=== PATIENT | female | born 1955 | race Caucasian/White ===

== ENCOUNTER 2020-05-02 10:11 | Inpatient (IN) | payer MEDICARE, MEDICAID ==
[~2020-05-02] VITALS: Ht 170.2 cm; Wt 93.4 kg
--- NOTE | 2020-05-02 10:15 | NUR ---
BIB EMS FROM HOME, PT W/ HX OF COPD NOT ON OXYGEN AT HOME. 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 PT NOW PRESENTS LETHARGIC, ANSWERS QUESTIONS WITH STIMULATION AND ENCOURAGEMENT WITH ON WORD ANSWERS. PT VERY LETHARGIC PUPILS PIN [place]INT. TOOK AMBIEN LAST NIGHT BUT DENIES ANY MEDS THIS AM. PER EMS PT WITH INCREASING SOB X 3 DAYS. PT IS A SMOKER. PT ON ALL MONITORS AND EKG COMPLETED. DR OLIVO AT BEDSIDE ASSESSMENT DISSCUSED AND ORDERS REC'D. PT WITH WEAK, MOIST NON-PROD COUGH, AUDIBLE WHEEZES AND PROLONGED EXPIRATORY PHASE. 02 NC TO 4L SP02 = 98% RR 11-16
[2020-05-02] MEDS ORDERED: SODIUM CHLORIDE FLUSH 10ML SYR IVF ONE (11:00)
[2020-05-02] MEDS ORDERED: methylPREDNISolone SOD SUCC 125 MG/2 ML IVPush ONE (11:00)
[2020-05-02] MEDS ORDERED: ALBUTEROL/IPRATROPIUM 2.5MG/0.5MG, 3 ML NPPB ONE (11:00)
[2020-05-02] MEDS ORDERED: MAGNESIUM SULFATE PMX 2GM/50ML 50 ML IVPB ONE (11:00)
[2020-05-02] MEDS ORDERED: MAGNESIUM SULFATE PMX 2GM/50ML 50 ML ONE (11:01)
[2020-05-02] MEDS ORDERED: methylPREDNISolone SOD SUCC 125 MG/2 ML ONE (11:01)
[2020-05-02] MEDS ORDERED: ALBUTEROL/IPRATROPIUM 2.5MG/0.5MG, 3 ML ONE (11:01)
[2020-05-02 11:12] LABS: BASOPHILS # (AUTO) 0.02 x10^3/uL (0-0.1); BASOPHILS % (AUTO) 0 % (0-1); EOSINOPHILS # (AUTO) 0.12 x10^3/uL (0-0.4); EOSINOPHILS % (AUTO) 2 % (1-7); LYMPHOCYTES # (AUTO) 1.91 x10^3/uL (1-3.4); LYMPHOCYTES % (AUTO) 25 % (22-44); MD NO; MEAN CORPUSCULAR HEMOGLOBIN 29.1 pg (27.0-34.8); MEAN CORPUSCULAR HGB CONC 33.3 g/dL (32.4-35.8); MEAN CORPUSCULAR VOLUME 87.4 fL (80-100); MEAN PLATELET VOLUME 8.6 fL (7.4-10.4); MONOCYTES # (AUTO) 0.34 x10^3/uL (0.2-0.8); MONOCYTES % (AUTO) 4 % (2-9); NEUTROPHILS # (AUTO) 5.29 x10^3/uL (1.8-6.8); NEUTROPHILS % (AUTO) 69 % (42-75); PLATELET COUNT 220 x10^3/uL (130-400); RED BLOOD COUNT 5.04 x10^6/uL (3.82-5.3); RED CELL DISTRIBUTION WIDTH 16.1 % (9.6-15.2)
[2020-05-02 11:22] LABS: ALBUMIN 3.6 g/dL (3.4-5.0); ANION GAP 4 mmol/L (5-15); CALCIUM 9.2 mg/dL (8.5-10.1); CHLORIDE 109 mmol/L (98-107); CREATININE 0.82 mg/dL (0.55-1.02)
--- NOTE | 2020-05-02 11:30 | NUR ---
SISTER, BOONE JOEL [phone]. PT GAVE VERBAL CONSENT THAT INFORMATION COULD BE SHARED. INFORMED BOONE OF POC AND EXPLAINED NO VISITORS AT THIS TIME 2/2 RESP ISSUES.
--- NOTE | 2020-05-02 11:30 | NUR ---
GLORIA GUEVARA TREATMENT ORDERED. DISCUSSED WITH SHORTS SIFTER., PT MOVED TO NEGATIVE PRESSURE ROOM AND RPT TO SHALINI CAMPOS. MEDS GIVEN NOTED AND INFUSING W/O DIFFICULTY. Addendum: 05/02/20 at 1140 by RACH MIKHAIL RPT TO SHALINI MARTINEZ
--- NOTE | 2020-05-02 12:17 | NUR ---
PT SOMULENT AROUSES TO VOICE, DUONEB STARTED VIA MASK
[2020-05-02] MEDS ORDERED: ALBUTEROL SULFATE 2.5 MG/3 ML NPPB ONE (12:30)
--- NOTE | 2020-05-02 12:38 | NUR ---
end tidal checked 29-34, md aware
[2020-05-02] MEDS ORDERED: NALOXONE 0.4 MG/ML, 1ML ONE (12:47)
[2020-05-02] MEDS ORDERED: ALBUTEROL SULFATE 2.5 MG/3 ML ONE (12:49)
--- NOTE | 2020-05-02 12:58 | NUR ---
per adminsiter .4 mg of narcan to determine if pt becomes more aroused, dr. beckman at bedside when medication was administered, no change in patients mentation
[2020-05-02] MEDS ORDERED: NALOXONE 0.4 MG/ML, 1ML IVPush ONE (13:00)
[2020-05-02] MEDS ORDERED: DENO60DI SQ (13:55)
[2020-05-02] MEDS ORDERED: EZET10TA70 PO (13:55)
[2020-05-02] MEDS ORDERED: MELO15TA24 PO (13:56)
[2020-05-02] MEDS ORDERED: LEVO50TA PO (13:56)
[2020-05-02] MEDS ORDERED: MOME17SP NS (13:57)
[2020-05-02] MEDS ORDERED: OMEP-110 PO (13:57)
[2020-05-02] MEDS ORDERED: TRAZ50TA66 PO (13:58)
[2020-05-02] MEDS ORDERED: RISP4TAB34 PO (13:58)
[2020-05-02] MEDS ORDERED: GABA800T5 PO (13:59)
[2020-05-02] MEDS ORDERED: ZOLP-413 PO (13:59)
[2020-05-02] MEDS ORDERED: APIX5TAB PO (13:59)
[2020-05-02] MEDS ORDERED: CLON2TAB PO (14:00)
[2020-05-02 14:24] LABS: INTERNATIONAL NORMALIZED RATIO 0.98 (0.93-1.1); PROTHROMBIN TIME 10.1 Seconds (9.6-11.5)
[2020-05-02 14:34] LABS: ALANINE AMINOTRANSFERASE 19 U/L (12-78); ALBUMIN 3.7 g/dL (3.4-5.0)
[2020-05-02 14:38] LABS: ALKALINE PHOSPHATASE 104 U/L (45-117); BILIRUBIN, DIRECT 0.1 mg/dL (0.1-0.2); BILIRUBIN,INDIRECT 0.3 mg/dL (0.0-2.0); BILIRUBIN,TOTAL 0.4 mg/dL (0.2-1.0); TOTAL PROTEIN 6.8 g/dL (6.4-8.2); TROPONIN I < 0.015 ng/mL (0.000-0.045)
--- NOTE | 2020-05-02 14:51 | NUR ---
REPORT RECEIVED FROM SHALINI MARTINEZ. PLAN OF CARE DISCUSSED. LAB TECHS IN ROOM TO DRAW BLOOD CULTURES
[2020-05-02] MEDS ORDERED: ACETAMINOPHEN 325 MG TABLET PO PRN (15:00)
[2020-05-02] MEDS ORDERED: LACTATED RINGERS 1,000 ML IV SCH (15:00)
[2020-05-02] MEDS ORDERED: hydrALAzine 20 MG/ML, 1ML IVPush PRN (15:00)
[2020-05-02] MEDS ORDERED: LABETALOL 5MG/ML, 20ML IVPush PRN (15:00)
[2020-05-02] MEDS ORDERED: ONDANSETRON 2MG/ML, 2ML IVPush PRN (15:00)
[2020-05-02] MEDS ORDERED: DOCUSATE 100 MG CAPSULE PO PRN (15:00)
[2020-05-02] MEDS ORDERED: MELATONIN 5 MG TABLET PO PRN (15:00)
--- NOTE | 2020-05-02 15:00 | NUR ---
UPDATED SISTER, BOONE, ON PLAN OF CARE. SISTER IS UNDERSTANDING OF PLAN.
--- NOTE | 2020-05-02 15:13 | NUR ---
PATIENT IS TO GO TO CT, PATIENT IS CURRENTLY ON CPAP. RT CALLED, THEY STATED TO PLACE PATIENT ON NRB OR OXYMASK FOR TRANSPORT AND WHILE IN CT, AND THEY WILL COME DOWN AND PLACE PATIENT BACK ON CPAP WHEN BACK IN ROOM
--- NOTE | 2020-05-02 15:40 | NUR ---
REPORT GIVEN TO SHALINI DE LA VEGA. PLAN OF CARE DISCUSSED. SHALINI SCHUMACHER ATTEMPTING SECOND PIV PLACEMENT VIA US. STRIAGHT CATH PERFORMED FOR STERILE UA. WALKED TO LAB. PATIENT TO GO TO CT THEN CCU
[2020-05-02 15:49] LABS: MICROSCOPIC INDICATED
--- NOTE | 2020-05-02 16:02 | NUR ---
LEFT AC PIV FOUND TO BE INFLITRATED. NO IVF INFUSING AT THIS TIME. PIV D/C TIP INTACT. FABI LOYA INFORMED
[2020-05-02 16:05] LABS: AMPHETAMINE SCREEN, URINE Positive (Negative); BARBITURATE SCREEN, URINE Negative (Negative); BENZODIAZEPINE SCREEN, URINE Positive (Negative); CANNABINOID SCREEN, URINE Positive (Negative); COCAINE SCREEN, URINE Negative (Negative); METHADONE SCREEN, URINE Negative (Negative); OPIATE SCREEN, URINE Positive (Negative)
--- NOTE | 2020-05-02 16:34 | NUR ---
22G PIV PLACED IN LEFT HAND
[2020-05-02] MEDS ORDERED: NALOXONE 1 MG/ML, 2ML ONE (16:42)
[2020-05-02] MEDS ORDERED: AZITHROMYCIN 500 MG in SODIUM CHLORIDE 0.9% 250 ML IV SCH (16:45)
[2020-05-02] MEDS ORDERED: methylPREDNISolone SOD SUCC 125 MG/2 ML IVPush SCH (17:00)
[2020-05-02] MEDS ORDERED: NALOXONE 1 MG/ML, 2ML IVPush ONE ×2 (17:30)
[2020-05-02] MEDS: CEFTRIAXONE PMX 1GM/50ML 50 ML IV SCH (18:16)
[2020-05-02] MEDS ORDERED: NALOXONE 0.4 MG/ML, 1ML IVPush PRN ×2 (19:00→19:30)
[2020-05-02 19:48] VITALS: BP 100/44
[2020-05-02] MEDS: APIXABAN 5 MG TABLET PO SCH (20:24)
[2020-05-02] MEDS: SODIUM CHLORIDE FLUSH 10ML SYR IVF SCH (20:24)
[2020-05-03 04:11] VITALS: BP 108/47
[2020-05-03] MEDS: LEVOTHYROXINE 88 MCG TABLET PO SCH (05:44)
[2020-05-03 05:52] LABS: ANION GAP 7 mmol/L (5-15); CALCIUM 9.2 mg/dL (8.5-10.1); CHLORIDE 109 mmol/L (98-107)
[2020-05-03 06:11] LABS: MEAN CORPUSCULAR HGB CONC 33.1 g/dL (32.4-35.8); MEAN CORPUSCULAR VOLUME 87.6 fL (80-100); MEAN PLATELET VOLUME 8.9 fL (7.4-10.4); PLATELET COUNT 218 x10^3/uL (130-400); RED BLOOD COUNT 4.63 x10^6/uL (3.82-5.3); RED CELL DISTRIBUTION WIDTH 15.6 % (9.6-15.2)
[2020-05-03 06:42] LABS: BASOPHILS # (AUTO) 0.03 x10^3/uL (0-0.1); BASOPHILS % (AUTO) 0 % (0-1); EOSINOPHILS % (AUTO) 0 % (1-7); LYMPHOCYTES # (AUTO) 0.84 x10^3/uL (1-3.4); LYMPHOCYTES % (AUTO) 6 % (22-44); MD SCAN; MONOCYTES # (AUTO) 0.17 x10^3/uL (0.2-0.8); MONOCYTES % (AUTO) 1 % (2-9); NEUTROPHILS # (AUTO) 12.98 x10^3/uL (1.8-6.8); NEUTROPHILS % (AUTO) 93 % (42-75)
[2020-05-03] MEDS: OMEPRAZOLE 20 MG CAPSULE.DR PO SCH (07:30)
[2020-05-03] MEDS: APIXABAN 5 MG TABLET PO SCH ×2 (07:42→20:02)
[2020-05-03] MEDS: EZETIMIBE 10 MG TABLET PO SCH (07:42)
[2020-05-03] MEDS: SODIUM CHLORIDE FLUSH 10ML SYR IVF SCH ×2 (07:43→20:02)
[2020-05-03 14:00] VITALS: BP 137/67
[2020-05-03] MEDS ORDERED: ALBUTEROL/IPRATROPIUM 2.5MG/0.5MG, 3 ML HHN PRN (15:30)
[2020-05-03] MEDS: metroNIDAZOLE 500 MG TABLET PO SCH (16:18)
[2020-05-03] MEDS: CEFTRIAXONE PMX 1GM/50ML 50 ML IV SCH (17:57)
[2020-05-03 19:51] VITALS: BP 85/57
[2020-05-03] MEDS: ALBUTEROL-IPRATROPIUM MDI INH INH SCH (20:15)
[2020-05-04] MEDS: metroNIDAZOLE 500 MG TABLET PO SCH ×3 (01:00→14:08)
[2020-05-04 02:00] VITALS: BP 92/40
[2020-05-04 04:28] LABS: BASOPHILS # (AUTO) 0.04 x10^3/uL (0-0.1); BASOPHILS % (AUTO) 0 % (0-1); EOSINOPHILS # (AUTO) 0.01 x10^3/uL (0-0.4); EOSINOPHILS % (AUTO) 0 % (1-7); LYMPHOCYTES # (AUTO) 2.78 x10^3/uL (1-3.4); LYMPHOCYTES % (AUTO) 23 % (22-44); MD NO; MEAN CORPUSCULAR HEMOGLOBIN 28.8 pg (27.0-34.8); MEAN CORPUSCULAR HGB CONC 32.9 g/dL (32.4-35.8); MEAN CORPUSCULAR VOLUME 87.4 fL (80-100); MEAN PLATELET VOLUME 8.5 fL (7.4-10.4); MONOCYTES # (AUTO) 0.53 x10^3/uL (0.2-0.8); MONOCYTES % (AUTO) 4 % (2-9); NEUTROPHILS # (AUTO) 8.73 x10^3/uL (1.8-6.8); NEUTROPHILS % (AUTO) 72 % (42-75); PLATELET COUNT 205 x10^3/uL (130-400); RED BLOOD COUNT 4.52 x10^6/uL (3.82-5.3); RED CELL DISTRIBUTION WIDTH 16.1 % (9.6-15.2)
[2020-05-04 04:31] LABS: ANION GAP 4 mmol/L (5-15); CALCIUM 8.7 mg/dL (8.5-10.1); CHLORIDE 110 mmol/L (98-107); CREATININE 0.68 mg/dL (0.55-1.02)
[2020-05-04] MEDS: LEVOTHYROXINE 88 MCG TABLET PO SCH (05:06)
[2020-05-04 08:33] VITALS: BP 117/59
[2020-05-04] MEDS: OMEPRAZOLE 20 MG CAPSULE.DR PO SCH (08:57)
[2020-05-04] MEDS: APIXABAN 5 MG TABLET PO SCH ×2 (08:57→20:00)
[2020-05-04] MEDS: EZETIMIBE 10 MG TABLET PO SCH (08:57)
[2020-05-04] MEDS: ALBUTEROL-IPRATROPIUM MDI INH INH SCH ×2 (08:58→20:00)
[2020-05-04] MEDS: SODIUM CHLORIDE FLUSH 10ML SYR IVF SCH ×2 (08:59→20:00)
[2020-05-04] MEDS ORDERED: PHARMACY INSTRUCTION MC PRN (12:00)
[2020-05-04] MEDS ORDERED: CEFTRIAXONE PMX 1GM/50ML 50 ML IV SCH (13:00)
[2020-05-04] MEDS: GABAPENTIN 400 MG CAPSULE PO SCH ×2 (14:08→20:00)
[2020-05-04 14:09] VITALS: BP 92/49
[2020-05-04 19:44] VITALS: BP 80/51
[2020-05-04 19:50] VITALS: BP 91/61
[2020-05-05 01:44] VITALS: BP 90/60
[2020-05-05] MEDS: metroNIDAZOLE 500 MG TABLET PO SCH ×3 (01:49→16:52)
[2020-05-05] MEDS: LEVOTHYROXINE 88 MCG TABLET PO SCH (06:11)
[2020-05-05] MEDS: OMEPRAZOLE 20 MG CAPSULE.DR PO SCH (06:11)
[2020-05-05] MEDS: APIXABAN 5 MG TABLET PO SCH ×2 (08:38→20:48)
[2020-05-05] MEDS: GABAPENTIN 400 MG CAPSULE PO SCH ×3 (08:38→21:18)
[2020-05-05] MEDS: EZETIMIBE 10 MG TABLET PO SCH (08:38)
[2020-05-05] MEDS: SODIUM CHLORIDE FLUSH 10ML SYR IVF SCH ×2 (09:00→21:18)
[2020-05-05] MEDS ORDERED: CEFDINIR 300 MG CAPSULE PO SCH (09:00)
[2020-05-05] MEDS: ALBUTEROL-IPRATROPIUM MDI INH INH SCH ×2 (09:00→21:18)
[2020-05-05 09:59] VITALS: BP 99/59
[2020-05-05 15:07] VITALS: BP 93/64
[2020-05-05] MEDS: CEFDINIR 300 MG CAPSULE PO SCH (20:48)
[2020-05-05 20:54] VITALS: BP 105/73
[2020-05-06 04:22] VITALS: BP 106/73
[2020-05-06] MEDS: LEVOTHYROXINE 88 MCG TABLET PO SCH (04:25)
[2020-05-06] MEDS: metroNIDAZOLE 500 MG TABLET PO SCH ×3 (04:25→16:26)
[2020-05-06] MEDS: OMEPRAZOLE 20 MG CAPSULE.DR PO SCH (07:30)
[2020-05-06] MEDS: ALBUTEROL-IPRATROPIUM MDI INH INH SCH (09:00)
[2020-05-06] MEDS: SODIUM CHLORIDE FLUSH 10ML SYR IVF SCH (09:00)
[2020-05-06] MEDS: CEFDINIR 300 MG CAPSULE PO SCH (09:48)
[2020-05-06] MEDS: EZETIMIBE 10 MG TABLET PO SCH (09:48)
[2020-05-06] MEDS: GABAPENTIN 400 MG CAPSULE PO SCH (09:48)
[2020-05-06] MEDS: APIXABAN 5 MG TABLET PO SCH (09:49)
[2020-05-06 12:00] VITALS: BP 103/69
[2020-05-06] MEDS ORDERED: CEFD300C37 PO (12:47)
[2020-05-06] MEDS ORDERED: METR500T PO (12:47)
[2020-05-06] MEDS ORDERED: ACID1TAB7 PO (12:47)
[2020-05-06] MEDS ORDERED: LACTOBACILLUS CHEW TABLET PO SCH (16:00)
== END 2020-05-06 16:31 | DRG 917 ==
LOC: ED 12:15 → SUATTDRO 12:31 → EDIP 14:25 → CCU 16:29 → ICU 18:05 → 4EST 05-04 19:05
PROVIDERS: ADMIT Internal Medicine; ATTEND Internal Medicine
PROC: 0T9B70Z Drainage of Bladder with Drainage Device, Via Natural or Artificial Opening (ICD-10-PCS; 2020-05-02)
PROC: 5A09357 Assistance with Respiratory Ventilation, Less than 24 Consecutive Hours, Continuous Positive Airway Pressure (ICD-10-PCS; 2020-05-02)
PROC: 5A09357 Assistance with Respiratory Ventilation, Less than 24 Consecutive Hours, Continuous Positive Airway Pressure (ICD-10-PCS; 2020-05-03)
PROC: 5A09357 Assistance with Respiratory Ventilation, Less than 24 Consecutive Hours, Continuous Positive Airway Pressure (ICD-10-PCS; principal; 2020-05-04)
DX: T42.4X2A Poisoning by benzodiazepines, intentional self-harm, initial encounter (principal); J96.01 Acute respiratory failure with hypoxia; G92 Toxic encephalopathy; J69.0 Pneumonitis due to inhalation of food and vomit; J96.02 Acute respiratory failure with hypercapnia; E87.2 Acidosis; D68.69 Other thrombophilia; N39.0 Urinary tract infection, site not specified; J44.9 Chronic obstructive pulmonary disease, unspecified; E16.2 Hypoglycemia, unspecified; E78.5 Hyperlipidemia, unspecified; F32.9 Major depressive disorder, single episode, unspecified; G89.29 Other chronic pain; M19.90 Unspecified osteoarthritis, unspecified site; Z20.828 Contact with and (suspected) exposure to other viral communicable diseases; R73.9 Hyperglycemia, unspecified; E03.9 Hypothyroidism, unspecified; T40.602A Poisoning by unspecified narcotics, intentional self-harm, initial encounter; T40.7X2A Poisoning by cannabis (derivatives), intentional self-harm, initial encounter; Z79.01 Long term (current) use of anticoagulants; Z86.73 Personal history of transient ischemic attack (TIA), and cerebral infarction without residual deficits; Z88.2 Allergy status to sulfonamides; Z88.7 Allergy status to serum and vaccine; Z90.710 Acquired absence of both cervix and uterus; Y92.89 Other specified places as the place of occurrence of the external cause
CPT/HCPCS: 36415; 36600; 70450; 71045; 80048; 80076; 80307; 81001; 82040; 82803; 83735; 83880; 84100; 84145; 84439; 84443; 84484; 85025; 85610; 87040; 87081; 87086; 87635; 93005; 93306; 94640; 94660; 96365; 96375; 99291; G0378; J0456; J0696; J2310; J7613; J2930; J3475; J7050; J7120